=== PATIENT | male | born 1990 ===

== ENCOUNTER 2022-03-16 23:12 | Emergency (ER) | payer OTHER ==
--- OUTSIDE RECORDS SUMMARY | 2022-03-16 23:15 | XMS REPORT | Continuity of Care Document ---
:1990 Author Organization [facility] t Address [address] [place] [address] Care Team Providers Name Role Phone GERMAN VEGA Primary Care Physician Unavailable ALVARO GARZA Attending Clinician Unavailable ALVARO GARZA Attending Clinician Unavailable Alvaro Garza MD Attending Clinician Doctor Unassigned, [place] Attending Clinician Unavailable ALVARO GARZA Admitting Clinician Unavailable Payers Payer Name Policy Type Policy Number Effective Date Expiration Date S jayda [facility] STAR [id number] 2021 00:00:00 Problems Condition Condition Condition Status Onset Resolution Last Treating Co mments Source Name Details Category Date Date Treatment Clinician Date No known No known Disease Unive rs active active ity of problems problems [facility] [place] Allergies, Adverse Reactions, Alerts Allergy Allergy Status Severity Reaction(s) Onset Inactive Treating Comm ents Source Name Type Date Date Clinician PROPRANO DRUG Active Palpitations 0 Un bethany LOL INGREDI 2-01 ity of 00:00: [place] 00 [facility] Proprano Propensi Active Palpitations 2021-0 Univers lol ty to 2-01 ity of adverse 00:00: [place] reaction 00 Medical s Branch Social History Social Habit Start Date Stop Date Quantity Comments Source Exposure to 2022-02-07 2022-02-17 Not sure [facility] SARS-CoV-2 (event) 00:00:00 10:17:00 Medica l Branch Sex Ass[birth year] [facility] of [place] 00:00:00 00:00:00 [facility] Smoking Status Start Date Stop Date Source Tobacco smoking consumption Univ ersity [facility] Branch Medications Ordered Filled Start Stop Current Ordering Indication Dosage Frequency Signature Comments Components Source Medication Medication Date Date Medication? Clinician (SIG) Name Name sara 2021- No [id number] .2mL/kg 0.2 mL/kg, Univers dimeglumine 02-17 Intravenou i ty of (MULTIHANCE 16:30: 16:23 s, ONCE, 1 [place] -20 mL) 00 :00 dose, On Medical injection 02/17/22 Bran ch 0.2 mL/kg at 1130, Routine No known No No known Unive rs medications 7-15 medication it y of 08:03: s [address] No known No No known Unive rs medications 7-15 medication it y of 08:03: s [address] No known No No known Unive rs medications 7-15 medication it y of 08:03: s [address] Vital Signs Vital Name Observation Time Observation Value Comments Source Systolic blood 2022-01-24 13:07:00 135 mm[Hg] Univer sity [facility] Diastolic blood 2022-01-24 13:07:00 73 mm[Hg] Unive rsity [facility] Heart rate 2022-01-24 13:07:00 71 /min [facility] Body height 2022-01-24 13:07:00 185.4 cm [facility] Body weight 2022-01-24 13:07:00 96.616 kg [facility] BMI 2022-01-24 13:07:00 28.10 kg/m2 [facility] Procedures Procedure Date / Time Performed Performing Clinician Jonathan e MR BRAIN W WO CONTRAST 2022-02-17 16:18:00 Alvaro Garza [facility] ASSIGNMENT OF BENEFITS 2022-02-17 15:08:33 Doctor Unassigned, No [facility] Name [facility] Encounters Start End Encounter Admission Attending Care Care Encounter Source Date/Time Date/Time Type Type Clinicians Facility Department ID 2022-02-17 2022-02-17 Outpatient ALVARO [facility]T [facility] [id number] Univers 10:17:50 23:59:00 [facility]02-17 [facility] [id number] Univers 10:17:50 23:59:00 [facility] [id number] [facility] [place] [id number] [place] [facility] [id number] [facility] [address] [place] 2022-02-17 2022-02-17 Outpatient ALVARO [facility]ENNETT [facility] [id number] Univers 00:00:00 00:00:00 [facility] [id number] [facility] 2022-02-17 2022-02-17 Orders Doctor VENUS [id number] Univers 00:00:00 00:00:00 Only Unassigned, TERRA [id number] ity of [place] [facility] [id number] Mike as [id number] [facility] [address] [place] 2022-01-24 2022-01-24 [facility] [id number] [facility] Univers 08:00:00 09:10:43 Visit Alvaro [facility] [id number] ity of [place] [id number] Mike as DHIRAJ?BLEA [id number] [address] MEDICAL OFFICE BUILDING Results This patient has no known results.
[2022-03-16] MEDS ORDERED: METOPROLOL TARTRATE 5 MG/5 ML INJ IV ONE (23:35)
[2022-03-16] MEDS ORDERED: ADENOSINE 6 MG/ 2ML VIAL IV ONE (23:35)
[2022-03-16] MEDS ORDERED: NA CHLORIDE 0.9% 2,000 ML ONE (23:39)
[2022-03-16] MEDS ORDERED: DIAZEPAM 10 MG/2 ML INJ SYRINGE ONE (23:48)
[2022-03-17 00:03] LABS: Hematocrit 45.2 % (39.6-49.0); Lymphocytes % 37.9 % (15.3-44.8); MCV 87.3 fL (80-100); RBC Red Blood Cell Count 5.17 M/uL (4.33-5.43)
[2022-03-17 00:06] LABS: Protime INR 1.04
[2022-03-17 00:36] LABS: ALT/SGPT 29 U/L (12-78); AST/SGOT 12 U/L (15-37); Albumin 4.2 g/dL (3.4-5.0); Alkaline Phosphatase 68 U/L (45-117); BUN Blood Urea Nitrogen 22 mg/dL (7-18); Bicarbonate 21 mmol/L (21-32); Bilirubin Total 0.2 mg/dL (0.2-1.0); Glomerular Filtration Rate 65 ml/min (=/>90); Glucose Level 178 mg/dL (74-106); Magnesium 2.1 mg/dL (1.8-2.4); NT PRO-BNP 45 pg/mL (<125); Potassium 3.2 mmol/L (3.5-5.1); Protein, Total 7.4 g/dL (6.4-8.2); Sodium Level 140 mmol/L (136-145); Troponin High Sensitivity 10.4 pg/mL (<58.9)
[2022-03-17 00:39] LABS: Bilirubin Direct < 0.1 mg/dL (0-0.2)
[2022-03-17 01:23] LABS: Urine Blood Negative (Negative); Urine Glucose Negative (Negative); Urine Protein Negative (Negative); Urine Specific Gravity 1.025 (1.005-1.030); Urine pH 5.5 (5.0-7.0)
[2022-03-17 02:09] LABS: Barbiturates NEGATIVE (NEGATIVE); Benzodiazepines NEGATIVE (NEGATIVE); Cocaine NEGATIVE (NEGATIVE); METHAMPHETAM NEGATIVE (NEGATIVE); Methadone NEGATIVE (NEGATIVE); Opiates NEGATIVE (NEGATIVE); Phencyclidine NEGATIVE (NEGATIVE); THC Cannibis POSITIVE (NEGATIVE)
--- NOTE | 2022-03-17 02:16 | EDPHYS ---
Physician Documentation [facility] Name: Leobardo Wong Age: 31 yrs Sex: Male : 1990 Arrival Date: 03/16/2022 Time: 23:16 Bed 7 Private MD: ED Physician Dany Santos HPI: 03/17 02:11 This 31 yrs old Male presents to ER via Wheelchair with complaints of RACIG yusuf HEART AFTER CBD. 02:11 The patient presents with a history of irregular heart beat, heart skipping beats. yusuf Context: The symptoms occur with anxiety. Onset: The symptoms/episode began/occurred just prior to arrival. Duration: The patient or guardian reports a single episode, that is still ongoing, but improving. Modifying factors: The symptoms are aggravated by anxiety, strenuous activity, The symptoms are alleviated by lying down, prescription medication, remaining still. Associated signs and symptoms: Pertinent positives: lightheadedness, nausea. Severity of symptoms: At their worst the symptoms were moderate in the emergency department the symptoms are unchanged. The patient has experienced a previous episode. Historical: - Allergies: 03/16 23:20 No Known Allergies; tw5 - PMHx: 23:20 None; tw5 - PSHx: 23:20 None; tw5 - Immunization history:: Adult Immunizations not up to date. - Social history:: Smoking status: Patient/guardian denies using tobacco, but has a distant history of tobacco abuse, Patient uses alcohol. - Family history:: not pertinent. ROS: 03/17 02:11 Constitutional: Negative for fever, chills, and weight loss, Eyes: Negative for injury, yusuf pain, redness, and discharge, ENT: Negative for injury, pain, and discharge, Neck: Negative for injury, pain, and swelling, Cardiovascular: Negative for chest pain, palpitations, and edema, Respiratory: Negative for shortness of breath, cough, wheezing, and pleuritic chest pain, Abdomen/GI: Negative for abdominal pain, nausea, vomiting, diarrhea, and constipation, Back: Negative for injury and pain, : Negative for injury, bleeding, discharge, and swelling, MS/Extremity: Negative for injury and deformity, Skin: Negative for injury, rash, and discoloration, Neuro: Negative for headache, weakness, numbness, tingling, and seizure. Exam: 02:11 Constitutional: This is a well developed, well nourished patient who is awake, alert, yusuf and in no acute distress. Head/Face: Normocephalic, atraumatic. Eyes: Pupils equal round and reactive to light, extra-ocular motions intact. Lids and lashes normal. Conjunctiva and sclera are non-icteric and not injected. Cornea within normal limits. Periorbital areas with no swelling, redness, or edema. ENT: Nares patent. No nasal discharge, no septal abnormalities noted. Tympanic membranes are normal and external auditory canals are clear. Oropharynx with no redness, swelling, or masses, exudates, or evidence of obstruction, uvula midline. Mucous membranes moist. Neck: Trachea midline, no thyromegaly or masses palpated, and no cervical lymphadenopathy. Supple, full range of motion without nuchal rigidity, or vertebral point tenderness. No Meningismus. Chest/axilla: Normal chest wall appearance and motion. Nontender with no deformity. No lesions are appreciated. Respiratory: Lungs have equal breath sounds bilaterally, clear to auscultation and percussion. No rales, rhonchi or wheezes noted. No increased work of breathing, no retractions or nasal flaring. Abdomen/GI: Soft, non-tender, with normal bowel sounds. No distension or tympany. No guarding or rebound. No evidence of tenderness throughout. Back: No spinal tenderness. No costovertebral tenderness. Full range of motion. Male : Normal genitalia with no discharge or lesions. Skin: Warm, dry with normal turgor. Normal color with no rashes, no lesions, and no evidence of cellulitis. MS/ Extremity: Pulses equal, no cyanosis. Neurovascular intact. Full, normal range of motion. Neuro: Awake and alert, GCS 15, oriented to person, place, time, and situation. Cranial nerves II-XII grossly intact. Motor strength 5/5 in all extremities. Sensory grossly intact. Cerebellar exam normal. Normal gait. Psych: Awake, alert, with orientation to person, place and time. Behavior, mood, and affect are within normal limits. 02:11 Cardiovascular: Rate: tachycardic, Rhythm: regular, Pulses: Pulses are 4+ in bilateral radial, brachial, femoral, popliteal, posterior tibial and and dorsalis pedis arteries.. Heart sounds: normal, normal S1and S2, no S3 or S4, no murmur, no rub, no gallop, Edema: is not appreciated, JVD: is not appreciated. Vital Signs: 03/16 23:22 BP 148 / 75; Pulse 176; Resp 24; Temp 98.6; Pulse Ox 100% on R/A; Weight 86.18 kg; tw5 Height 6 ft. 1 in. (185.42 cm); Pain 0/10; 03/17 00:42 BP 142 / 67; Pulse 122; Resp 18; Pulse Ox 100% on 2 lpm NC; tw5 01:40 BP 138 / 98; Pulse 107; Resp 20; Pulse Ox 100% on 2 lpm NC; tw5 03/16 23:22 Body Mass Index 25.07 (86.18 kg, 185.42 cm) tw5 MDM: 03/16 23:21 Patient medically screened. [facility] 03/17 02:14 Data reviewed: vital signs, nurses notes, lab test result(s), EKG, radiologic studies. [facility] 03/16 23:35 Order name: Basic Metabolic Panel; Complete Time: 02:08 [facility] 03/16 23:35 Order name: CBC with Diff [facility] 03/16 23:35 Order name: LFT's; Complete Time: 02:08 [facility] 03/16 23:35 Order name: Magnesium; Complete Time: 02:08 [facility] 03/16 23:35 Order name: NT PRO-BNP; Complete Time: 02:08 [facility] 03/16 23:35 Order name: PT-INR; Complete Time: 02:08 yusuf 03/16 23:35 Order name: Troponin HS; Complete Time: 02:08 [facility] 03/16 23:35 Order name: Acetaminophen; Complete Time: 02:08 [facility] 03/16 23:35 Order name: ETOH Level; Complete Time: 02:08 yusuf 03/16 23:35 Order name: Ptt, Activated; Complete Time: 02:08 yusuf 03/16 23:35 Order name: Salicylate; Complete Time: 02:08 [facility] 03/16 23:35 Order name: Urine Drug Screen; Complete Time: 02:10 uysuf 03/16 23:35 Order name: TSH; Complete Time: 02:08 yusuf 03/17 01:24 Order name: Urine Dipstick-Ancillary; Complete Time: 02:08 EDMS 03/16 23:35 Order name: XRAY Chest (1 view) [facility] 03/16 23:35 Order name: EKG; Complete Time: 23:36 [facility] 03/16 23:35 Order name: Cardiac monitoring; Complete Time: 23:36 [facility] 03/16 23:35 Order name: EKG - Nurse/Tech; Complete Time: 23:36 [facility] 03/16 23:35 Order name: IV Saline Lock; Complete Time: 23:36 [facility] 03/16 23:35 Order name: Labs collected and sent; Complete Time: 23:36 [facility] 03/16 23:35 Order name: O2 Per Protocol; Complete Time: 23:36 [facility] 03/16 23:35 Order name: O2 Sat Monitoring; Complete Time: 23:36 [facility] 03/16 23:35 Order name: Suicide Screening ([place]); Complete Time: 23:51 [facility] 03/16 23:35 Order name: Urine Dipstick-Ancillary (obtain specimen); Complete Time: 01:19 [facility] 03/16 23:35 Order name: PO challenge; Complete Time: 23:43 [facility] Administered Medications: 03/16 23:36 Drug: NS 0.9% 1000 ml Route: IV; Rate: 1 bolus; Site: left antecubital; tw03/17 00:44 Follow up: Response: No adverse reaction; IV Status: Completed infusion; IV Intake: tw5 1000ml 03/16 23:37 Not Given (Other Intervention Used): Ativan (LORazepam) 1 mg IVP once tw 23:43 Drug: Valium (diazepam) 4 mg Route: IVP; Site: left antecubital; 03/17 00:44 Follow up: Response: No adverse reaction; Anxiety decreased 03/16 23:51 Drug: Metoprolol 5 mg Route: IVP; Site: right antecubital; tw03/17 00:42 Follow up: Response: No adverse reaction; Anxiety decreased tw5 02:49 Drug: Potassium Effervescent Tablet 50 mEq Route: PO; ke1 02:56 Follow up: Response: Medication administered at discharge. ke1 02:49 Drug: Aspirin Chewable Tablet 162 mg Route: PO; ke1 02:56 Follow up: Response: Medication administered at discharge. ke1 02:50 Drug: Lopressor (metoprolol TARTRATE) 50 mg Route: PO; ke1 02:56 Follow up: Response: Medication administered at discharge. ke1 Disposition Summary: 03/17/22 02:15 Discharge Ordered Location: Home yusuf Problem: new yusuf Symptoms: have improved yusuf Condition: Stable yusuf Diagnosis - Anxiety disorder, unspecified yusuf - Palpitations yusuf Followup: yusuf - With: Private Physician - When: 2 - 3 days - Reason: Recheck today's complaints, Continuance of care, Re-evaluation by your physician Followup: yusuf - With: Silvano Clmeent MD - When: 2 - 3 days - Reason: Recheck today's complaints, Continuance of care, Re-evaluation by your physician Discharge Instructions: - Discharge Summary Sheet yusuf - Palpitations yusuf - Aspirin and Your Heart yusuf - Palpitations, [id number] yusuf - Supporting Someone With Anxiety yusuf - Managing Anxiety, Adult yusuf - Caffeine Use Disorder yusuf Forms: - Medication Reconciliation Form yusuf - Thank You Letter yusuf - Antibiotic Education yusuf - Prescription Opioid Use yusuf Prescriptions: - Hydroxyzine HCl 25 mg Oral Tablet - take 1 tablet by ORAL route every 6 hours As needed; 30 tablet; Refills: 0, yusuf Product Selection Permitted - Toprol XL 25 mg Oral Tablet - take 1 tablet by ORAL route once daily; 20 tablet; Refills: 0, Product yusuf Selection Permitted Signatures: Dispatcher [employer] Dany Yin MD MD cha Wood, Tiffany tw5 Erin Schumacher RN RN ke1
--- NOTE | 2022-03-17 02:16 | ER ---
Nurse's Notes [facility] Name: Leobardo Wong Age: 31 yrs Sex: Male : 1990 Arrival Date: 03/16/2022 Time: 23:16 Bed 7 Private MD: Diagnosis: Anxiety disorder, unspecified;Palpitations Presentation: 03/16 23:18 Chief complaint: Patient states: "Oh fabrice I am having a heart attack." Patient tw5 reports he had a cbd gummie and one drink. Risk Assessment: Do you want to hurt yourself or someone else? Patient reports no desire to harm self or others. Onset of symptoms was March 16, 2022 at 22:00. 23:18 Method Of Arrival: Wheelchair tw5 23:18 Acuity: [place]AZ[place] 2 tw5 23:20 Coronavirus screen: Vaccine status: Patient reports being unvaccinated. Ebola Screen: ke1 No symptoms or risks identified at this time. Initial Sepsis Screen: Does the patient meet any 2 criteria? No. Patient's initial sepsis screen is negative. Does the patient have a suspected source of infection? No. Patient's initial sepsis screen is negative. Triage Assessment: 23:20 General: Appears uncomfortable, Behavior is anxious, restless. Pain: Denies pain. tw5 Neuro: Level of Consciousness is awake, alert, obeys commands. Cardiovascular:. Historical: - Allergies: 23:20 No Known Allergies; tw5 - PMHx: 23:20 None; tw5 - PSHx: 23:20 None; tw5 - Immunization history:: Adult Immunizations not up to date. - Social history:: Smoking status: Patient/guardian denies using tobacco, but has a distant history of tobacco abuse, Patient uses alcohol. - Family history:: not pertinent. Screenin:51 Abuse screen: Denies threats or abuse. Denies injuries from another. Nutritional tw5 screening: No deficits noted. Tuberculosis screening: No symptoms or risk factors identified. Fall Risk None identified. Assessment: 23:22 General: attempted a vasovagal maneuver-failed . Neuro: Level of Consciousness is tw5 awake, alert, obeys commands, Oriented to person, place, time, situation. 23:35 Reassessment: No changes from previously documented assessment. General: Appears tw5 distressed, Behavior is. 23:51 General: Reports " I have just had a really hard life recently, my sister and I tw5 have been bouncing around to different jobs. I am sorry I am so anxious right now.". Cardiovascular: Rhythm is sinus tachycardia. 03/17 00:42 Reassessment: Patient states feeling better. Patient states symptoms have improved. tw5 General: Reports "I am still feeling anxious, but I am a lot better than I was.". 01:40 Reassessment: Patient states feeling better. Patient states symptoms have improved. tw5 Vital Signs: 03/16 23:22 BP 148 / 75; Pulse 176; Resp 24; Temp 98.6; Pulse Ox 100% on R/A; Weight 86.18 kg; tw5 Height 6 ft. 1 in. (185.42 cm); Pain 0/10; 03/17 00:42 BP 142 / 67; Pulse 122; Resp 18; Pulse Ox 100% on 2 lpm NC; tw5 01:40 BP 138 / 98; Pulse 107; Resp 20; Pulse Ox 100% on 2 lpm NC; tw5 03/16 23:22 Body Mass Index 25.07 (86.18 kg, 185.42 cm) tw5 ED Course: 03/16 23:16 Patient arrived in ED. mw2 23:18 Cami Loyola is Primary Nurse. tw5 23:20 Triage completed. tw5 23:20 Dany Santos MD is Attending Physician. [facility] 23:22 Patient has correct armband on for positive identification. Placed in gown. Bed in low tw5 position. Call light in reach. Client placed on continuous cardiac and pulse oximetry monitoring. NIBP monitoring applied. Door closed. Noise minimized. 23:28 quality assurance monitor on. Pulse ox on. NIBP on. mh5 23:35 Inserted saline lock: 20 gauge in left antecubital area, using aseptic technique. tw5 23:35 EKG done, by ED staff. tw5 23:36 Oxygen administration via nasal cannula \\T\\ 2L/min. tw5 23:51 Inserted saline lock: 20 gauge in right antecubital area, using aseptic technique. tw5 Blood collected. started by BEAR MORA. 03/17 00:13 XRAY Chest (1 view) In Process Unspecified. EDMS 01:19 CBC with Diff Sent. tw5 01:19 Urine Drug Screen Sent. tw5 02:16 Silvano Clement MD is Referral Physician. yusuf 02:54 No provider procedures requiring assistance completed. ke1 02:55 IV discontinued. ke1 Administered Medications: 03/16 23:36 Drug: NS 0.9% 1000 ml Route: IV; Rate: 1 bolus; Site: left antecubital; tw5 03/17 00:44 Follow up: Response: No adverse reaction; IV Status: Completed infusion; IV Intake: tw5 1000ml 03/16 23:37 Not Given (Other Intervention Used): Ativan (LORazepam) 1 mg IVP once 23:43 Drug: Valium (diazepam) 4 mg Route: IVP; Site: left antecubital; 03/17 00:44 Follow up: Response: No adverse reaction; Anxiety decreased tw03/16 23:51 Drug: Metoprolol 5 mg Route: IVP; Site: right antecubital; tw5 03/17 00:42 Follow up: Response: No adverse reaction; Anxiety decreased tw5 02:49 Drug: Potassium Effervescent Tablet 50 mEq Route: PO; ke1 02:56 Follow up: Response: Medication administered at discharge. ke1 02:49 Drug: Aspirin Chewable Tablet 162 mg Route: PO; ke1 02:56 Follow up: Response: Medication administered at discharge. ke1 02:50 Drug: Lopressor (metoprolol TARTRATE) 50 mg Route: PO; ke1 02:56 Follow up: Response: Medication administered at discharge. ke1 Medication: 03/16 23:51 VIS not applicable for this client. tw5 Intake: 03/17 00:44 IV: 1000ml; Total: 1000ml. tw5 Outcome: 02:15 Discharge ordered by . yusuf 02:55 Discharged to home ambulatory. ke1 02:55 Condition: good 02:55 Discharge instructions given to patient. 02:57 Patient left the ED. ke1 Signatures: Dispatcher [employer] EDMS Dany Santos MD MD cha Martinez, Maria 5 Mg Fitch Tiffany tw5 Erin Schumacher, ABBY RN ke1
[2022-03-17] MEDS ORDERED: METOPROLOL TAR 50 MG TAB ONE (02:48)
[2022-03-17] MEDS ORDERED: ASPIRIN EC 81 MG TAB PO ONE (02:48)
[2022-03-17] MEDS ORDERED: POTASSIUM 25 MEQ EFFERV TAB ONE (02:48)
[2022-03-17 03:26] VITALS: TEMP 98.6; O2SAT 100
[2022-03-17 03:38] VITALS: BP 138/98
--- NOTE | 2022-03-17 15:25 | RAD REPORT ---
EXAM DESCRIPTION: RAD - Chest Single View - 03/17/2022 12:09 am CLINICAL HISTORY: CHEST PAIN. COMPARISON: None. TECHNIQUE: Single view AP chest radiograph(s). FINDINGS: The lungs are clear. No pulmonary infiltrate or edema identified. No pleural effusion. N o pneumothorax. Nonenlarged cardiomediastinal silhouette. No significant osseous abnormality. A defib rillator pad overlies the left lower chest. IMPRESSION: No acute cardiopulmonary abnormality identified by radiograph. Electronically signed by: Evelia Cline MD 03/17/2022 12:21 AM CDT Due to temporary technical issues with the PACS/Fluency reporting system, reports are being signed by the in house radiologists without review as a courtesy to insure prompt reporting. The interpreting radiologist is fully responsible for the content of the report.
--- NOTE | 2022-03-18 14:35 | EKG ---
Test Date: 2022-03-16 Test Time: 23:36:58 Muck Miner: BOB MEASUREMENT RESULTS: Intervals: Rate: 131 CO: 158 QRSD: 96 QT: 284 QTc: 419 [place]: P: 64 CO: 158 QRS: 76 T: 51 INTERPRETIVE STATEMENTS: Sinus tachycardia Possible Left atrial enlargement Incomplete right bundle branch block Borderline ECG Compared to ECG 03/16/2022 23:25:15 Incomplete right bundle-branch block now present Supraventricular tachycardia no longer present Myocardial infarct finding no longer present Electronically Signed On 03-18-22 14:31:33 CDT by Ciro Zapien
--- NOTE | 2022-03-18 14:35 | EKG ---
Test Date: 2022-03-16 Test Time: 23:25:15 Chiropractic Neurologist: BOB MEASUREMENT RESULTS: Intervals: Rate: 172 [place]: QRSD: 90 QT: 284 QTc: 480 [place]: P: [place]: QRS: 79 T: 60 INTERPRETIVE STATEMENTS: Supraventricular tachycardia RSR' or QR pattern in V1 suggests right ventricular conduction delay Cannot rule out Anterior infarct, age undetermined Abnormal ECG No previous ECG available for comparison Electronically Signed On 03-18-22 14:31:37 CDT by Ciro Zapien
== END 2022-03-17 02:57 | disposition home or self-care (01) ==
LOC: ER 23:12
DX: R00.2 Palpitations (principal); F41.9 Anxiety disorder, unspecified
CPT/HCPCS: 93005 ×2; 85025; 80048; 36415; 80320; 83735; 80329 ×2; 85610; 80076; 85730; 84443; 81003; 84484; 83880; 80307; 71045; 99285; J0153; J3360; J7030